=== PATIENT | female | born 1980 | race Caucasian/White ===

== ENCOUNTER → 2016-10-12 | Outpatient (CLI) | payer BC | END | disposition home or self-care (01) | LOC: GMAJ 17:36 | PROVIDERS: ATTEND Family Medicine | DX: L40.59 Other psoriatic arthropathy (principal); M25.50 Pain in unspecified joint ==

== ENCOUNTER → 2020-01-14 | Outpatient (CLI) | payer BC | LOC: GMAJ 16:38 | PROVIDERS: ATTEND Family Medicine | DX: Z00.00 Encounter for general adult medical examination without abnormal findings (principal) ==